=== PATIENT | female | born 1975 | race Caucasian/White ===

== ENCOUNTER 2017-07-18 13:42 | Inpatient (IN) | payer MEDICAID, OTHER ==
[~2017-07-18] VITALS: Ht 165.1 cm; Wt 65.5 kg
[~2017-07-18 13:42] MED LIST: ADVA250A INH; ADVAI250I PO; ALBU1AER INH; ALBU8I INH; ATOR20TA PO; ATOR40TA PO; BUSP10TA PO; CLOB-50 EX; CLOBETASOL; CLON.5 PO; FLON0.053; FOLI5CAP PO; GLUCTAB PO; IBUP800T23 PO; LACT10SO27; MEDR2.5T19 IM; METH2.5 PO; MORP1CAP80; MUSCLE RELAXER; NEUR300C PO; OMEP20TA39 PO; PREG75 PO; PROP20TA3 PO; SERO100T PO; SERO200T PO; SUCR1TAB PO; SYMB160A INH; TIZA4 PO; TRAZ100 PO; WAL-10TA2 PO
[2017-07-18 14:00] VITALS: BP 117/64; PULSE 92; RESP 20; TEMP 98.5; O2SAT 98
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
[2017-07-18 14:43] LABS: AUTOMATED NEUTROPHIL # 7.6 TH/MM3 (1.8-7.7); BASOPHIL # 0.1 TH/MM3 (0-0.2); BASOPHIL % 0.7 % (0.0-2.0); EOSINOPHIL # 0.2 TH/MM3 (0-0.4); EOSINOPHIL % 1.7 % (0.0-4.0); HEMATOCRIT 39.9 % (35.0-46.0); HEMOGLOBIN 13.6 GM/DL (11.6-15.3); LYMPH % 29.9 % (9.0-44.0); LYMPHOCYTE # 3.8 TH/MM3 (1.0-4.8); MEAN CELL VOLUME 98.9 FL (80.0-100.0); MEAN CORPUSCULAR HEMOGLOBIN 33.7 PG (27.0-34.0); MEAN PLATELET VOLUME 8.9 FL (7.0-11.0); MONO % 8.4 % (0.0-8.0); MONOCYTE # 1.1 TH/MM3 (0-0.9); NEUT % 59.3 % (16.0-70.0); PLATELET COUNT 213 TH/MM3 (150-450); RED BLOOD COUNT 4.04 MIL/MM3 (4.00-5.30); WHITE BLOOD COUNT 12.8 TH/MM3 (4.0-11.0)
[2017-07-18] MEDS ORDERED: ZIPRASIDONE HCL 20 MG CAP PO ONE (14:45)
[2017-07-18 14:49] LABS: BACTERIA, URINE OCC /hpf; BILIRUBIN, URINE NEG (NEG); BLOOD, URINE NEG (NEG); GLUCOSE,URINE NEG (NEG); KETONE, URINE NEG (NEG); NITRITE,URINE NEG (NEG); PH, URINE 7.5 (5.0-8.5); SQUAMOUS EPITHELIAL CELL URINE 21 /hpf (0-5); URINE COLOR YELLOW (YELLW/STRAW); URINE LEUKOCYTE ESTERASE NEG (NEG)
[2017-07-18 15:03] LABS: ALBUMIN 3.9 GM/DL (3.4-5.0); ALT (GPT) 21 U/L (10-53); AST (GOT) 12 U/L (15-37); BICARBONATE 24.9 MEQ/L (21.0-32.0); BLOOD UREA NITROGEN 10 MG/DL (7-18); CHLORIDE 109 MEQ/L (98-107); CREATININE 0.69 MG/DL (0.50-1.00); GLOMERULAR FILTRATION RATE 93 ML/MIN (>89); GLUCOSE,RANDOM 100 MG/DL (74-106); SODIUM (NA) 139 MEQ/L (136-145)
[2017-07-18 15:05] LABS: ALKALINE PHOSPHATASE 62 U/L (45-117); TOTAL BILIRUBIN ADULT 0.4 MG/DL (0.2-1.0); TOTAL PROTEIN 6.9 GM/DL (6.4-8.2)
[2017-07-18 15:08] VITALS: BP 124/84; PULSE 79; RESP 18; TEMP 98.7; O2SAT 96
[2017-07-18] MEDS ORDERED: diphenhydrAMINE HCL 50 MG/ML VIAL IM ONE (15:30)
[2017-07-18] MEDS ORDERED: HALOPERIDOL LACTATE 5 MG/ML AMP IM ONE (15:30)
[2017-07-18] MEDS ORDERED: LORazepam 2 MG/ML VIAL IM ONE (15:30)
[2017-07-18] MEDS ORDERED: HALOPERIDOL LACTATE 5 MG/ML AMP ONE (15:40)
[2017-07-18] MEDS ORDERED: LORazepam 2 MG/ML VIAL ONE (15:41)
[2017-07-18 18:38] VITALS: BP 122/86; PULSE 56; RESP 18; O2SAT 99
[2017-07-18 22:43] VITALS: BP 122/68; PULSE 73; RESP 17; TEMP 99.2; O2SAT 95
[2017-07-19 02:24] VITALS: BP 120/59; PULSE 80; RESP 16; TEMP 98.5; O2SAT 96
[2017-07-19 06:50] VITALS: BP 110/59; PULSE 75; RESP 16; TEMP 98.5; O2SAT 96
[2017-07-19] MEDS ORDERED: diphenhydrAMINE HCL 50 MG/ML VIAL IM PRN (10:45)
[2017-07-19] MEDS ORDERED: MAGNESIUM HYDROXIDE SUSP 30 ML CUP PO PRN (10:45)
[2017-07-19] MEDS ORDERED: traZODone HCL 50 MG TAB PO PRN (10:45)
[2017-07-19] MEDS ORDERED: ALUMINUM/MAGNESIUM/SIMETH 30 ML CUP PO PRN (10:45)
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
[2017-07-19 10:56] VITALS: BP 118/75; PULSE 84; RESP 20
[2017-07-19] MEDS: DIVALPROEX SODIUM E.R. 500 MG TAB PO SCH (11:28)
[2017-07-19] MEDS: clonazePAM 1 MG TAB PO SCH ×2 (11:29→20:52)
[2017-07-19 12:35] VITALS: BP 100/68; PULSE 71; RESP 18; TEMP 97.1; O2SAT 99
[2017-07-19] MEDS ORDERED: GLUCAGON 1 MG/ML VIAL OTHER PRN (13:45)
[2017-07-19] MEDS ORDERED: DEXTROSE 50% IN WATER 50 ML VIAL(D50) IV PUSH PRN (13:45)
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
[2017-07-19] MEDS: INSULIN ASPART SUPPLEMENTAL SCALE SQ SCH ×2 (16:36→20:52)
[2017-07-19] MEDS: FLUTICASONE PROPIONATE 50 MCG/ACT 16 GM NASAL SPRAY NASAL SCH (20:53)
[2017-07-20 06:13] VITALS: BP 106/55; PULSE 71; RESP 16; TEMP 98; O2SAT 99
[2017-07-20] MEDS: INSULIN ASPART SUPPLEMENTAL SCALE SQ SCH ×4 (07:34→21:00)
[2017-07-20] MEDS ORDERED: SERO25TA PO (08:07)
[2017-07-20] MEDS ORDERED: VIIB10TA PO (08:07)
[2017-07-20] MEDS ORDERED: FLUT1SPR5 EACH NARE (08:07)
[2017-07-20] MEDS ORDERED: TRAZ100T10 PO (08:07)
[2017-07-20] MEDS ORDERED: CLON1 PO (08:07)
[2017-07-20] MEDS ORDERED: XANA1TAB2 PO (08:07)
[2017-07-20] MEDS ORDERED: SERO300T PO (08:07)
[2017-07-20] MEDS: clonazePAM 1 MG TAB PO SCH (09:00)
[2017-07-20] MEDS: FLUTICASONE PROPIONATE 50 MCG/ACT 16 GM NASAL SPRAY NASAL SCH ×2 (09:00→20:53)
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
[2017-07-20] MEDS: DIVALPROEX SODIUM E.R. 500 MG TAB PO SCH (09:09)
[2017-07-20 10:08] LABS: AUTOMATED NEUTROPHIL # 8.5 TH/MM3 (1.8-7.7); BASOPHIL # 0.1 TH/MM3 (0-0.2); BASOPHIL % 0.7 % (0.0-2.0); EOSINOPHIL # 0.3 TH/MM3 (0-0.4); EOSINOPHIL % 2.2 % (0.0-4.0); HEMATOCRIT 44.3 % (35.0-46.0); HEMOGLOBIN 14.4 GM/DL (11.6-15.3); LYMPH % 26.1 % (9.0-44.0); LYMPHOCYTE # 3.4 TH/MM3 (1.0-4.8); MEAN CORPUSCULAR HEMOGLOBIN 32.5 PG (27.0-34.0); MEAN CORPUSCULAR HGB CONC 32.5 % (32.0-36.0); MEAN PLATELET VOLUME 8.7 FL (7.0-11.0); MONO % 6.1 % (0.0-8.0); MONOCYTE # 0.8 TH/MM3 (0-0.9); NEUT % 64.9 % (16.0-70.0); PLATELET COUNT 221 TH/MM3 (150-450); RED BLOOD COUNT 4.43 MIL/MM3 (4.00-5.30); RED CELL DISTRIBUTION WIDTH 13.8 % (11.6-17.2)
[2017-07-20 11:01] LABS: ALBUMIN 3.4 GM/DL (3.4-5.0); AST (GOT) 33 U/L (15-37); BICARBONATE 23.6 MEQ/L (21.0-32.0); BLOOD UREA NITROGEN 14 MG/DL (7-18); CALCIUM 8.9 MG/DL (8.5-10.1); CHLORIDE 105 MEQ/L (98-107); CHOLESTEROL 170 MG/DL (120-200); CREATININE 0.82 MG/DL (0.50-1.00); GLOMERULAR FILTRATION RATE 76 ML/MIN (>89); GLUCOSE,RANDOM 123 MG/DL (74-106); SODIUM (NA) 136 MEQ/L (136-145)
[2017-07-20] MEDS: hydrOXYzine HCL 50 MG TAB PO PRN ×2 (11:01→20:52)
[2017-07-20] MEDS: QUEtiapine FUMARATE 25 MG TAB PO SCH (11:02)
[2017-07-20 11:21] LABS: ALKALINE PHOSPHATASE 55 U/L (45-117); ALT (GPT) 20 U/L (10-53); CHOLESTEROL/ HDL RATIO 2.93 RATIO; LDL CHOLESTEROL 94 MG/DL (0-99); TOTAL BILIRUBIN ADULT 0.3 MG/DL (0.2-1.0); TOTAL PROTEIN 6.8 GM/DL (6.4-8.2); TRIGLYCERIDES 89 MG/DL (42-150)
[2017-07-20] MEDS: NICOTINE 21 MG/24 HR PATCH T-DERMAL SCH (14:15)
--- NOTE | 2017-07-20 14:54 | EKG ---
Date Performed: 07/20/2017 Time Performed: 09:50:13 PTAGE: 42 years EKG: Sinus rhythm WITH SINUS ARRHYTHMIA RIGHT ATRIAL ENLARGEMENT POSSIBLE LEFT ATRIAL ENLARGEMENT INDETERMINATE AXIS P OSSIBLE RIGHT VENTRICULAR CONDUCTION DELAY Since previous tracing, no significant change noted ABNORM AL ECG PREVIOUS TRACING : 08/05/2014 12.14 DOCTOR: Suhas Patel Interpretating Date/Time 07/20/2017 14:52:41
[2017-07-20 15:24] LABS: HEMOGLOBIN A1C 5.4 % (4.3-6.0)
--- NOTE | 2017-07-20 15:37 | PD.TTN ---
Patient Problems 1. Discharge planning 2. Medication compliance 3. Knowledge deficit 4. Lack of coping skills Progress Toward Goals Provider Present: Dr. Cher Benedict Provider Input: Pt is new to the unit and will be evaluated along with medication regiment. Nurse(s) Present: Keyla Kothari RN Nurse(s) Input: Pt is new to the unit and will continue to be monitored. Psychiatric Counselors Present: CARMENCITA Ordonez Psych Therapist Input: Pt will be assessed using biopsychosocial assessment as she is new today. Group Spec/RT/OT/LOVELL Present: NAS Valero Group Spec/RT/OT/LOVELL Input: Pt is new and will be evaluated as well as encouraged to attend group. Discharge Plan SMA Pt discharge plan will be evaluated as her care continues. She has a home at this time but is not wanting to return there and wishes to be placed at an [facility]. Documentation Scribe: CARMENCITA Ordonez Jonathan LMHC Jul 20, 2017 15:37
[2017-07-20 18:00] VITALS: BP 109/61; PULSE 87; RESP 18; TEMP 97.5; O2SAT 98
[2017-07-20] MEDS: QUEtiapine FUMARATE 300 MG TAB PO SCH (20:52)
[2017-07-20] MEDS: diphenhydrAMINE HCL 50 MG CAP PO PRN (20:52)
[2017-07-20] MEDS: traZODone HCL 100 MG TAB PO SCH (20:52)
[2017-07-20] MEDS: ALBUTEROL SULFATE 90 MCG/ACT HFA 8 GM INHALER INH PRN (20:53)
[2017-07-20] MEDS ORDERED: FLUTICASONE EACH NARE SCH (21:00)
[2017-07-21 05:37] VITALS: BP 108/72; PULSE 94; RESP 17; TEMP 97.8; O2SAT 99
[2017-07-21] MEDS: INSULIN ASPART SUPPLEMENTAL SCALE SQ SCH ×2 (08:00→11:08)
[2017-07-21] MEDS: NICOTINE 21 MG/24 HR PATCH T-DERMAL SCH (08:01)
[2017-07-21] MEDS: QUEtiapine FUMARATE 25 MG TAB PO SCH ×2 (08:01→11:11)
[2017-07-21] MEDS: REMOVE OLD PATCH T-DERMAL SCH (08:04)
[2017-07-21] MEDS ORDERED: VILAZODONE 10 MG PO SCH (09:00)
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
[2017-07-21] MEDS: ERGOCALCIFEROL (VIT D2) 50,000 UNIT CAP PO SCH (14:36)
[2017-07-21] MEDS: FLUTICASONE PROPIONATE 50 MCG/ACT 16 GM NASAL SPRAY NASAL SCH ×2 (14:36→22:45)
[2017-07-21] MEDS: ACETAMINOPHEN 325 MG TAB PO PRN ×2 (17:26→21:32)
[2017-07-21] MEDS: QUEtiapine FUMARATE 300 MG TAB PO SCH (21:31)
[2017-07-21] MEDS: hydrOXYzine HCL 50 MG TAB PO PRN (21:32)
[2017-07-21] MEDS: traZODone HCL 100 MG TAB PO SCH (21:32)
[2017-07-21] MEDS: diphenhydrAMINE HCL 50 MG CAP PO PRN (21:34)
[2017-07-21] MEDS: ALBUTEROL SULFATE 90 MCG/ACT HFA 8 GM INHALER INH PRN (22:45)
[2017-07-22 06:03] VITALS: BP 96/55; PULSE 79; RESP 16; TEMP 98.2; O2SAT 97
[2017-07-22] MEDS: ALBUTEROL SULFATE 90 MCG/ACT HFA 8 GM INHALER INH PRN ×2 (08:17→21:38)
[2017-07-22] MEDS: QUEtiapine FUMARATE 25 MG TAB PO SCH ×2 (08:19→11:38)
[2017-07-22] MEDS: NICOTINE 21 MG/24 HR PATCH T-DERMAL SCH (08:19)
[2017-07-22] MEDS: FLUTICASONE PROPIONATE 50 MCG/ACT 16 GM NASAL SPRAY NASAL SCH ×2 (08:22→21:00)
[2017-07-22] MEDS: REMOVE OLD PATCH T-DERMAL SCH (08:22)
--- NOTE | 2017-07-22 15:07 | HHI.PYPN ---
Subjective Chief Complaint: "I need to get my meds all right." Remarks Pt seen and discussed with staff. She continues to engage in splitting behaviors and making demands for various medications including pain medicines. No aggression or agitation. No depression or SI/HI. Mental Status Examination Appearance: Disheveled Consciousness: Alert Orientation: x4 Motor Activity: Normal gait, Other (no motor abnormalities noted. No signs of withdrawal noted.) Speech: Unremarkable Language: Adequate Fund of Knowledge: Adequate Attention and Concentration: Adequate Memory: Unremarkable (grossly intact on clinical exam) Mood: Anxious, Other (depressed) Affect: Blunt Thought Process & Associations: Intact, Linear Thought Content: Appropriate Hallucination Type: None Delusion Type: None Suicidal Ideation: No Suicidal Plan: No Suicidal Intention: No Homicidal Ideation: No Homicidal Plan: No Homicidal Intention: No Insight: Fair Judgment: Impulsive Results Labs Date/Time Source Procedure Growth Status 07/20/17 16:53 Urine Clean Catch Urine Culture - Final 10-50,000 CFU/ML MIXED MICHELLE... Complete Vitals/IOs Vital Signs Date Time Temp Pulse Resp B/P (MAP) Pulse Ox O2 Delivery O2 Flow Rate FiO2 07/22/17 06:03 98.2 79 16 96/55 (69) 97 07/19/17 10:56 Room Air Assessment & Plan Problem List: (1) Adjustment disorder with mixed disturbance of emotions and conduct ICD Codes: F43.25 - Adjustment disorder with mixed disturbance of emotions and conduct (2) Polysubstance dependence ICD Codes: F19.20 - Other psychoactive substance dependence, uncomplicated Assessment & Plan Continue current tx plan. Estimated LOS: days Justification for Cont. Inpt. risk of decompensation Vicky Barr MD Jul 22, 2017 15:07
[2017-07-22] MEDS: traZODone HCL 100 MG TAB PO SCH (21:00)
[2017-07-22] MEDS: QUEtiapine FUMARATE 300 MG TAB PO SCH (21:00)
[2017-07-22] MEDS: hydrOXYzine HCL 50 MG TAB PO PRN (21:38)
[2017-07-23 05:56] VITALS: BP 101/55; PULSE 72; RESP 17; TEMP 97.7; O2SAT 97
[2017-07-23] MEDS: REMOVE OLD PATCH T-DERMAL SCH (09:00)
[2017-07-23] MEDS: NICOTINE 21 MG/24 HR PATCH T-DERMAL SCH (09:26)
[2017-07-23] MEDS: QUEtiapine FUMARATE 25 MG TAB PO SCH (09:26)
[2017-07-23] MEDS: FLUTICASONE PROPIONATE 50 MCG/ACT 16 GM NASAL SPRAY NASAL SCH ×2 (09:27→21:00)
--- NOTE | 2017-07-23 12:12 | HHI.PYPN ---
Subjective Chief Complaint: mixed state Remarks Patient seen and examined with nurse. Chart reviewed. Case discussed with nursing staff. On my examination today, the patient presents with pressured speech. She is hyperkinetic. She is perseverative on her medications, and she reports that she is not on several medications she is supposed to be on. She has produced a list of these medications, and it appears to include some potentially appropriate medications (like oxybutynin), but the list derails into other items like "senior living" and "electric blanket." We do not yet have a medication list from patient's pharmacy, and I have instructed the heating unit mechanic to obtain one. Affect is somewhat dysphoric. Patient remains medication seeking for controlled substances. Remains somewhat entitled and demanding. Denies side effects from medications. No physical complaints. Review of Systems ROS Limitations: Poor Historian Except as stated in HPI: all other systems reviewed are Neg Mental Status Examination Appearance: Disheveled Consciousness: Alert Orientation: x4 Motor Activity: Normal gait, Other (no motoric abnormalities noted) Speech: Pressured Language: Adequate Fund of Knowledge: Adequate Attention and Concentration: Adequate Memory: Unremarkable (grossly intact on clinical exam) Mood: Anxious, Other (dysphoric) Affect: Labile Thought Process & Associations: Other (perseverative) Thought Content: Appropriate Hallucination Type: None Delusion Type: None Suicidal Ideation: No Suicidal Plan: No Suicidal Intention: No Homicidal Ideation: No Homicidal Plan: No Homicidal Intention: No Insight: Fair (at best) Judgment: Impulsive Mental Status Exam Remarks No signs of withdrawal noted. Results Labs Date/Time Source Procedure Growth Status 07/20/17 16:53 Urine Clean Catch Urine Culture - Final 10-50,000 CFU/ML MIXED MICHELLE... Complete Labs reviewed. Vitals/IOs Vital Signs Date Time Temp Pulse Resp B/P (MAP) Pulse Ox O2 Delivery O2 Flow Rate FiO2 07/23/17 05:56 97.7 72 17 101/55 (70) 97 07/19/17 10:56 Room Air Assessment & Plan Problem List: (1) Bipolar disorder, curr episode mixed, severe, w/o psychotic features ICD Codes: F31.63 - Bipolar disorder, current episode mixed, severe, without psychotic features (2) Polysubstance dependence ICD Codes: F19.20 - Other psychoactive substance dependence, uncomplicated Assessment & Plan I continue to suspect some degree of manipulation for nursing home and controlled substances. There is likely also an Amagon II component to patient's current presentation. However, underneath these other features, patient does appear to be in a mixed state. I will discontinue antidepressants, which may exacerbate this state, and titrate Seroquel to 100mg qAM and 400mg qHS for mood stabilization. Patient had previously reported that she was not on VPA and so this was discontinued, but to consider introducing such an agent for mood stabilization. I do note that the patient has some psoriatic lesions on her elbows and so I will order betamethasone ointment. Continue to monitor on the inpatient unit. Continue other medications and care as ordered. Justification for Cont. Inpt. Medication changes. High risk for decompensation in less restrictive environment. Discharge Planning Pending psychiatric stabilization. Melchor Benedict MD Jul 23, 2017 12:12
[2017-07-23] MEDS ORDERED: OLANZapine IM 10 MG VIAL IM STA (15:46)
[2017-07-23] MEDS: diphenhydrAMINE HCL 50 MG CAP PO PRN ×2 (16:45→20:36)
[2017-07-23] MEDS: hydrOXYzine HCL 50 MG TAB PO PRN (20:36)
[2017-07-23] MEDS: ACETAMINOPHEN 325 MG TAB PO PRN (20:36)
[2017-07-23] MEDS ORDERED: QUEtiapine FUMARATE 200 MG TAB PO SCH (21:00)
[2017-07-24] MEDS: ALBUTEROL SULFATE 90 MCG/ACT HFA 8 GM INHALER INH PRN ×2 (05:06→12:12)
[2017-07-24 05:45] VITALS: BP 102/55; PULSE 90; RESP 18; TEMP 97.5; O2SAT 98
[2017-07-24] MEDS: NICOTINE 21 MG/24 HR PATCH T-DERMAL SCH (08:50)
[2017-07-24] MEDS: FLUTICASONE PROPIONATE 50 MCG/ACT 16 GM NASAL SPRAY NASAL SCH ×2 (08:51→21:18)
[2017-07-24] MEDS: QUEtiapine FUMARATE 100 MG TAB PO SCH (08:51)
[2017-07-24] MEDS: BETAMETHASONE DIPROPIONATE 0.05% OINT 15 GM TUBE TOPICAL SCH (08:51)
[2017-07-24] MEDS: REMOVE OLD PATCH T-DERMAL SCH (08:54)
--- NOTE | 2017-07-24 11:54 | HHI.PYPN ---
Subjective Chief Complaint: mixed state Remarks Patient seen and examined with nurse. Chart reviewed. Case discussed with nurse who reports patient remains in a mixed-manic state and is quite attention seeking. Case discussed in treatment team. On my examination today, patient seems marginally calmer. She is still hyperverbal with rapid speech. She perseverates on much of the same material as in previous visits. She is quite medication seeking, especially for benzodiazepines but also for medications more generally. We have faxed a request for med list from pharmacy, but I see no response yet. She says that she is experiencing CAH to self injure but says "I don't want to ." The patient has generated a list of "mental health issues" that includes "major manic depression...suicidal thoughts, homicidal thoughts, severe anxiety, ADHD - racing thoughts, severe major mood swings, PTSD , Bipolar, severe stress, insomnia, hopelessness, motor mouth, co-dependencies, clepto (sic), paranoid delusions with explosives, bad decision-making skills, angry outbursts, hears voices, arguments". She has generated a similarly hypergraphic list of objectives for the day. She does not verbalize any SI or HI to me today. Denies side effects from medications. Complains of neuropathic pain in neck and back; has been on gabapentin in the past. Also complains of GERD and requests PPI. No other physical complaints. Review of Systems ROS Limitations: Poor Historian Except as stated in HPI: all other systems reviewed are Neg Mental Status Examination Appearance: Disheveled Consciousness: Alert Orientation: x4 Motor Activity: Normal gait, Other (mildly psychomotor agitated but no other motor abnormalities noted) Speech: Pressured Language: Adequate Fund of Knowledge: Adequate Attention and Concentration: Adequate Memory: Unremarkable (grossly intact on clinical exam) Mood: Anxious Affect: Labile, Anxious Thought Process & Associations: Other (perseverative) Thought Content: Appropriate Hallucination Type: Other (Reports CAH to self-injure but does not appear internally stimulated.) Delusion Type: None Suicidal Ideation: No Suicidal Plan: No Suicidal Intention: No Homicidal Ideation: No Homicidal Plan: No Homicidal Intention: No Insight: Fair (at best) Judgment: Impulsive Results Labs Date/Time Source Procedure Growth Status 07/20/17 16:53 Urine Clean Catch Urine Culture - Final 10-50,000 CFU/ML MIXED MICHELLE... Complete Labs reviewed. Vitals/IOs Vital Signs Date Time Temp Pulse Resp B/P (MAP) Pulse Ox O2 Delivery O2 Flow Rate FiO2 07/24/17 05:45 97.5 90 18 102/55 (71) 98 Assessment & Plan Problem List: (1) Bipolar disorder, curr episode mixed, severe, w/o psychotic features ICD Codes: F31.63 - Bipolar disorder, current episode mixed, severe, without psychotic features (2) Polysubstance dependence ICD Codes: F19.20 - Other psychoactive substance dependence, uncomplicated Assessment & Plan Patient remains severely decompensated with respect to affective illness. Titrate Seroquel to 100mg qAM and 500mg qHS and add lithium 300mg BID both for mood stabilization. Check lithium level and BMP Sunday morning. Add gabapentin 100mg TID for neuropathic pain. Add Protonix for complaints of GERD. Awaiting med list from pharmacy. R/B/A for all med changes discussed with patient. Continue to monitor on high acuity unit. Continue other medications and care as ordered. Justification for Cont. Inpt. Medication changes. High risk for decompensation in less restrictive setting. Discharge Planning Pending psychiatric stabilization Request HC Surrog/Guard Advoc?: No Melchor Benedict MD Jul 24, 2017 11:54
[2017-07-24] MEDS: PANTOPRAZOLE SOD 20 MG DELAYED RELEASE TAB PO SCH (14:38)
--- NOTE | 2017-07-24 15:09 | PD.TTN ---
Patient Problems 1. Discharge planning 2. Medication compliance 3. Knowledge deficit 4. Lack of coping skills Progress Toward Goals Provider Present: Dr. Cher Benedict Provider Input: Pt is new to the unit and will be evaluated along with medication regiment. 1/2- Pt appears medication seeking and has been mentioning suicidal ideation. Nurse(s) Present: Keyla Kothari, RN Nurse(s) Input: Pt is new to the unit and will continue to be monitored. 1/2- Jyoti Orantes Pt received an IM yesterday due to her behaviors on unit, is medication seeking, manic and medication compliant. Psychiatric Counselors Present: CARMENCITA Ordonez Psych Therapist Input: Pt will be assessed using biopsychosocial assessment as she is new today. 1/2- Pt appears manic, hyperverbal, demanding, cooperative and disruptive on unit. She is focused on her placement issues as well as her financial issues. Pt has poor insight into condition and need for care. Pt is struggling to use coping and emotional regulation skills at this time. She states she can return home if necessary but prefers placement elsewhere though she has no available funds at this time. Group Spec/RT/OT/LOVELL Present: [facility] Valero Group Spec/RT/OT/LOVELL Input: Pt is new and will be evaluated as well as encouraged to attend group. 07/24- Power Brice OT Pt has attended select group activities. She is social with peers. Discharge Plan SMA Pt discharge plan will be evaluated as her care continues. She has a home at this time but is not wanting to return there and wishes to be placed at an [facility]. Documentation Scribe: CARMENCITA Ordonez Jonathan LMHC Jul 24, 2017 15:09
[2017-07-24] MEDS: hydrOXYzine HCL 50 MG TAB PO PRN (15:47)
[2017-07-24 16:54] VITALS: BP 115/55; PULSE 85; RESP 18; TEMP 98.7; O2SAT 97
[2017-07-24] MEDS: GABAPENTIN 100 MG CAP PO SCH (17:22)
[2017-07-24] MEDS ORDERED: QUEtiapine FUMARATE 200 MG TAB PO SCH (21:00)
[2017-07-24] MEDS: diphenhydrAMINE HCL 50 MG CAP PO PRN (21:17)
[2017-07-24] MEDS: LITHIUM CARBONATE 300 MG CAP PO SCH (21:17)
[2017-07-24] MEDS: ERGOCALCIFEROL (VIT D2) 50,000 UNIT CAP PO SCH (21:21)
[2017-07-25 05:36] VITALS: BP 132/68; PULSE 80; RESP 18; TEMP 98
[2017-07-25] MEDS: FLUTICASONE PROPIONATE 50 MCG/ACT 16 GM NASAL SPRAY NASAL SCH ×2 (09:00→20:16)
[2017-07-25] MEDS: REMOVE OLD PATCH T-DERMAL SCH (09:00)
[2017-07-25] MEDS: BETAMETHASONE DIPROPIONATE 0.05% OINT 15 GM TUBE TOPICAL SCH (09:18)
[2017-07-25] MEDS: GABAPENTIN 100 MG CAP PO SCH ×3 (09:18→17:52)
[2017-07-25] MEDS: LITHIUM CARBONATE 300 MG CAP PO SCH ×2 (09:18→20:16)
[2017-07-25] MEDS: PANTOPRAZOLE SOD 20 MG DELAYED RELEASE TAB PO SCH (09:18)
[2017-07-25] MEDS: NICOTINE 21 MG/24 HR PATCH T-DERMAL SCH (09:19)
[2017-07-25] MEDS: QUEtiapine FUMARATE 100 MG TAB PO SCH (09:19)
[2017-07-25] MEDS: LORATADINE 10 MG TAB PO SCH (12:50)
[2017-07-25] MEDS ORDERED: PILL SPLITTER OTHER PRN (13:00)
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
[2017-07-25 17:22] VITALS: BP 122/59; PULSE 76; RESP 18; TEMP 98; O2SAT 98
[2017-07-25] MEDS: diphenhydrAMINE HCL 50 MG CAP PO PRN (20:16)
[2017-07-25] MEDS: hydrOXYzine HCL 50 MG TAB PO PRN (20:16)
[2017-07-25] MEDS: ALBUTEROL SULFATE 90 MCG/ACT HFA 8 GM INHALER INH PRN (20:19)
[2017-07-25] MEDS ORDERED: OLANZapine 10 MG TAB PO SCH (21:00)
[2017-07-25] MEDS: ACETAMINOPHEN 325 MG TAB PO PRN (23:57)
[2017-07-26 05:41] VITALS: BP 129/69; PULSE 91; RESP 18; TEMP 97.4; O2SAT 99
[2017-07-26] MEDS: LORATADINE 10 MG TAB PO SCH (07:52)
[2017-07-26] MEDS: PANTOPRAZOLE SOD 20 MG DELAYED RELEASE TAB PO SCH (07:52)
[2017-07-26] MEDS: FLUTICASONE PROPIONATE 50 MCG/ACT 16 GM NASAL SPRAY NASAL SCH (07:53)
[2017-07-26] MEDS: BETAMETHASONE DIPROPIONATE 0.05% OINT 15 GM TUBE TOPICAL SCH (07:53)
[2017-07-26] MEDS: NICOTINE 21 MG/24 HR PATCH T-DERMAL SCH (07:53)
[2017-07-26] MEDS: GABAPENTIN 100 MG CAP PO SCH (07:53)
[2017-07-26] MEDS: LITHIUM CARBONATE 300 MG CAP PO SCH (07:53)
[2017-07-26] MEDS: REMOVE OLD PATCH T-DERMAL SCH (09:57)
[2017-07-26] MEDS ORDERED: LITH300C2 PO (11:26)
[2017-07-26] MEDS ORDERED: OLAN10TA PO (11:26)
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
== END 2017-07-26 13:05 | disposition left against medical advice (07) | DRG 885 ==
LOC: NEPC 13:42 → NEDA 07-19 10:36 → H270 07-19 12:35 → H260 07-21 16:00 → H270 07-23 17:20
PROVIDERS: ADMIT Psychiatry & Neurology Psychiatry; ATTEND Psychiatry & Neurology Psychiatry
DX: F31.63 Bipolar disorder, current episode mixed, severe, without psychotic features (principal); R45.851 Suicidal ideations; G62.9 Polyneuropathy, unspecified; F19.20 Other psychoactive substance dependence, uncomplicated; Z78.1 Physical restraint status; F60.89 Other specific personality disorders; F17.210 Nicotine dependence, cigarettes, uncomplicated; E11.9 Type 2 diabetes mellitus without complications; G89.29 Other chronic pain; M54.2 Cervicalgia; M54.9 Dorsalgia, unspecified; J44.9 Chronic obstructive pulmonary disease, unspecified; E78.5 Hyperlipidemia, unspecified; L40.9 Psoriasis, unspecified; Z91.19 Patient's noncompliance with other medical treatment and regimen; Z76.5 Malingerer [conscious simulation]; Z91.410 Personal history of adult physical and sexual abuse
CPT/HCPCS: 80053; 80061; 80307; 81001; 82306; 82607; 82948; 83036; 84443; 84703; 85025; 87086; 93005; 96372; J1200; J1630; J1815; J2060; Q0163

== ENCOUNTER 2017-07-27 11:11 | Emergency (ER) | payer MEDICAID, OTHER ==
[~2017-07-27] VITALS: Ht 165.1 cm; Wt 66.0 kg
[~2017-07-27 11:11] MED LIST changes: -ADVA250A INH; -ADVAI250I PO; -ALBU1AER INH; -ALBU8I INH; -ATOR20TA PO; -ATOR40TA PO; -BUSP10TA PO; -CLOB-50 EX; -CLOBETASOL; -CLON.5 PO; -FLON0.053; +FLUT1SPR5 EACH NARE; -FOLI5CAP PO; -GLUCTAB PO; -IBUP800T23 PO; -LACT10SO27; +LITH300C2 PO; -MEDR2.5T19 IM; -METH2.5 PO; -MORP1CAP80; -MUSCLE RELAXER; -NEUR300C PO; +OLAN10TA PO; -OMEP20TA39 PO; -PREG75 PO; -PROP20TA3 PO; -SERO100T PO; -SERO200T PO; -SUCR1TAB PO; -SYMB160A INH; -TIZA4 PO; -TRAZ100 PO; -WAL-10TA2 PO
[2017-07-27 11:28] VITALS: BP 117/89; PULSE 87; RESP 18; TEMP 98.6; O2SAT 96
[2017-07-27] MEDS ORDERED: KETOROLAC TROMETHAMINE 60 MG/2 ML (IM) VIAL IM ONE (11:45)
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
== END 2017-07-27 13:39 | disposition home or self-care (01) ==
LOC: NEPD 11:11 → NEPJ 13:39
DX: F60.89 Other specific personality disorders (principal); F17.200 Nicotine dependence, unspecified, uncomplicated; F12.90 Cannabis use, unspecified, uncomplicated; F14.90 Cocaine use, unspecified, uncomplicated; F15.90 Other stimulant use, unspecified, uncomplicated; G89.29 Other chronic pain; Z76.5 Malingerer [conscious simulation]
CPT/HCPCS: 96372; 99284; J1885

== ENCOUNTER 2018-04-25 09:01 | Inpatient (IN) ==
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
[2018-04-25 10:11] LABS: Baso # (Auto) 0.1 th/mm3 (0.0-0.2); Baso % (Auto) 0.8 % (0.0-2.0); Eos # (Auto) 0.3 th/mm3 (0.0-0.4); Eos % (Auto) 2.3 % (0.0-4.0); Hematocrit 41.8 % (35.0-46.0); Lymph # (Auto) 3.1 th/mm3 (1.0-4.8); Lymph % (Auto) 27.2 % (9.0-44.0); Mean Corpuscular HGB Conc 33.4 % (32.0-36.0); Mean Corpuscular Hemoglobin 32.7 pg (27.0-34.0); Mono % (Auto) 8.4 % (0.0-8.0); Neut % (Auto) 61.3 % (16.0-70.0); Platelet Count 221 th/mm3 (150-450); Red Blood Count 4.27 mil/mm3 (4.00-5.30); White Blood Count 11.5 th/mm3 (4.0-11.0)
[2018-04-25 10:31] LABS: Albumin 3.6 g/dL (3.4-5.0); Anion Gap 9 meq/L (5-15); Aspartate Aminotransferase 15 U/L (15-37); Blood Urea Nitrogen 11 mg/dL (7-18); Calcium 8.5 mg/dL (8.5-10.1); Carbon Dioxide 19.5 meq/L (21.0-32.0); Chloride 111 meq/L (98-107); Glomerular Filtration Rate 69 mL/min (>89); Glucose,Random 98 mg/dL (74-106); Potassium 4.2 meq/L (3.5-5.1); Sodium 139 meq/L (136-145)
[2018-04-25 10:32] LABS: Alanine Aminotransferase 37 U/L (10-53)
[2018-04-25 10:43] LABS: Alkaline Phosphatase 61 U/L (45-117); Total Protein 7.3 g/dL (6.4-8.2)
[2018-04-25] MEDS ORDERED: Aluminum/Magnesium/Simethacone Susp 30 ML UDC PO PRN (16:42)
[2018-04-25] MEDS ORDERED: Bisacodyl 10 MG Supp RECTAL PRN (16:42)
[2018-04-25] MEDS ORDERED: [UNRECOGNIZED DRUG - OTHER] PO SCH (16:45)
[2018-04-25] MEDS: Propranolol 40 MG Tablet PO SCH (18:00)
[2018-04-25] MEDS: Loratadine 10 MG Tablet PO SCH (18:00)
[2018-04-25] MEDS: QUEtiapine 25 MG Tablet PO SCH (18:02)
[2018-04-25] MEDS: Melatonin 5 MG Tablet PO PRN (21:37)
[2018-04-25] MEDS: traZODone 100 MG Tablet PO SCH (21:37)
[2018-04-25] MEDS: Senna/Docusate Sodium 8.6/50 MG Tablet PO SCH (21:37)
[2018-04-26] MEDS: Loratadine 10 MG Tablet PO SCH (09:31)
[2018-04-26] MEDS: Propranolol 40 MG Tablet PO SCH (09:31)
[2018-04-26] MEDS: traZODone 100 MG Tablet PO SCH (09:33)
[2018-04-26] MEDS: Senna/Docusate Sodium 8.6/50 MG Tablet PO SCH (09:33)
[2018-04-26] MEDS: QUEtiapine 25 MG Tablet PO SCH (09:34)
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
--- NOTE | 2018-04-26 12:02 | P.TTN ---
- Patient Problems Problems: 1. Discharge planning 2. Medication compliance 3. Knowledge deficit 4. Lack of coping skills - Progress Toward Goals Provider Present: Dr. Cher Benedict Provider Input: 04/26: Will observe pt through the weekend, possible DC to [facility], pt is not compliant with diabetes medication Nurse(s) Present: Daya Nurse Input: 04/26: Pt is "vance" Psychiatric Counselors Present: Jean Claude Galeana Jr., [facility] Psychiatric Therapist Input: 04/26: Suspected malingering, provided pt with resources for housing and she has not made an attempt to call or follow up Group Spec/RT/OT/LOVELL Present: NAS Valero, Power Brice, OT Group Spec/RT/OT/LOVELL Input: 04/26: Pt attends select groups minimally, unable to tolerate entire length of group, seclusive - Discharge Plan Homeless plan 04/26: Possible DC to [facility] - Documentation Teaching Recipient: Patient
[2018-04-26] MEDS ORDERED: Acetaminophen 325 MG Tablet PO PRN (12:32)
[2018-04-26] MEDS: Gabapentin 300 MG Capsule PO SCH ×2 (13:47→18:00)
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
[2018-04-26] MEDS: QUEtiapine 100 MG Tablet PO SCH (21:22)
[2018-04-27] MEDS: Sucralfate 1 GM Tablet PO SCH ×3 (03:28→21:11)
[2018-04-27] MEDS: Loratadine 10 MG Tablet PO SCH (08:45)
[2018-04-27] MEDS: Gabapentin 300 MG Capsule PO SCH ×3 (08:45→17:44)
[2018-04-27] MEDS: Propranolol 40 MG Tablet PO SCH (08:46)
[2018-04-27] MEDS: QUEtiapine 25 MG Tablet PO SCH (08:46)
[2018-04-27 09:22] LABS: Baso # (Auto) 0.1 th/mm3 (0.0-0.2); Eos # (Auto) 0.3 th/mm3 (0.0-0.4); Eos % (Auto) 3.3 % (0.0-4.0); Hemoglobin 13.9 gm/dL (11.6-15.3); Lymph # (Auto) 2.3 th/mm3 (1.0-4.8); Lymph % (Auto) 27.5 % (9.0-44.0); Mean Corpuscular HGB Conc 33.9 % (32.0-36.0); Mean Corpuscular Hemoglobin 33.4 pg (27.0-34.0); Mean Corpuscular Volume 98.7 fL (80.0-100.0); Mono # (Auto) 0.6 th/mm3 (0.0-0.9); Mono % (Auto) 6.9 % (0.0-8.0); Neut # (Auto) 5.1 th/mm3 (1.8-7.7); Neut % (Auto) 61.3 % (16.0-70.0); Platelet Count 196 th/mm3 (150-450); Red Blood Count 4.16 mil/mm3 (4.00-5.30); Red Cell Distribution Width 13.4 % (11.6-17.2); White Blood Count 8.3 th/mm3 (4.0-11.0)
[2018-04-27 09:48] LABS: Calcium 8.6 mg/dL (8.5-10.1); Carbon Dioxide 23.7 meq/L (21.0-32.0)
--- NOTE | 2018-04-27 13:21 | ECG ---
Date Performed: 04/26/2018 Time Performed: 14:17:20 PTAGE: 42 years EKG: SINUS BRADYCARDIA WITH SINUS ARRHYTHMIA POSSIBLE RIGHT VENTRICULAR CONDUCTION DELAY BORDERL INE ECG PREVIOUS TRACING : 07/20/2017 09.50 DOCTOR: Angel Peguero Interpretating Date/Time 04/27/2018 13:14:37
--- NOTE | 2018-04-27 18:33 | P.PNPSY ---
Subjective Chief Complaint: "I want to get right on my meds." Remarks: Reviewed electronic medical records and discussed case with staff. Follow-up was conducted in the day room with JEANETTE Gutierrez present. Staff reports the patient has had no behaviors since being here. Patient states that she "needs a new psychological evaluation because there are conditions I have that I am not being treated for". She presents as manic and perseverates on wanting different medications. Mental Status Examination Appearance: Disheveled Consciousness: Alert, Vigilant Orientation: Person, Place (At least) Motor Activity: Other (No motor abnormalities noted) Speech: Rapid Language: Other (Rambling) Fund of Knowledge: Inadequate Attention and Concentration: Easily distracted Memory: Impaired (Psychosis likely interferes) Mood: Irritable Affect: Irritable, Labile Thought Process & Associations: Loose associations, Disorganized, Tangential Thought Content: Hallucinations, Delusional Hallucination Type: Auditory, Visual Delusion Type: Paranoid Suicidal Ideation: Yes Suicidal Plan: No Suicidal Intention: No (No reported urge to hurt self on inpatient unit) Homicidal Ideation: Yes Homicidal Plan: No Homicidal Intention: No Insight: Poor Judgment: Poor Assessment and Plan - Assessment (1) Bipolar disorder, curr episode mixed, severe, with psychotic features Code(s): F31.64 - Bipolar disorder, current episode mixed, severe, with psychotic features Status: Acute - Plan Plan: Patient will be reevaluated Sunday by the attending psychiatrist. Continue with current treatment plan. Justification for Continued Inpatient Stay: Moving this patient to a less restrictive environment would likely result in decompensation. Request Healthcare Surrogate/Guardian Advocate?: No
[2018-04-27] MEDS: QUEtiapine 100 MG Tablet PO SCH (21:11)
[2018-04-28] MEDS: QUEtiapine 25 MG Tablet PO SCH (09:10)
[2018-04-28] MEDS: Gabapentin 300 MG Capsule PO SCH ×3 (09:10→17:32)
[2018-04-28] MEDS: Propranolol 40 MG Tablet PO SCH (09:10)
[2018-04-28] MEDS: Loratadine 10 MG Tablet PO SCH (09:11)
[2018-04-28] MEDS: Sucralfate 1 GM Tablet PO SCH ×2 (09:11→20:40)
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
[2018-04-28] MEDS: QUEtiapine 100 MG Tablet PO SCH (20:40)
[2018-04-29] MEDS: Melatonin 5 MG Tablet PO PRN (02:25)
[2018-04-29] MEDS: QUEtiapine 25 MG Tablet PO SCH (09:05)
[2018-04-29] MEDS: Propranolol 40 MG Tablet PO SCH (09:05)
[2018-04-29] MEDS: Gabapentin 300 MG Capsule PO SCH ×3 (09:05→18:10)
[2018-04-29] MEDS: Loratadine 10 MG Tablet PO SCH (09:05)
[2018-04-29] MEDS: Sucralfate 1 GM Tablet PO SCH ×2 (09:10→20:19)
--- NOTE | 2018-04-29 13:00 | P.PNPSY ---
Subjective Chief Complaint: "I want to get right on my meds." Remarks: Patient seen and examined with nurse. Chart reviewed. Case discussed with nursing staff. Nursing reports that the patient is less irritable today but remains quite scattered. She apparently has been seeing commercials for various medications on TV and believes that she needs to be on each and every 1 of these. Case discussed with counselor who will try to obtain collateral information. On my examination today, the patient is somewhat irritable with pressured speech. She says that she wants to be on Invega (even though Risperdal caused galactorrhea), Strattera, Vraylar and Xanax. She insists that she slept well, that her mood is good, and that she is experiencing no hallucinations. She is focused on discharge. Following my departure from the unit however, I was called by the nurse who reported that patient admitted minimizing psychiatric symptoms to try to obtain discharge. No side effects from medications. No physical complaints. Vital Signs Temp Pulse Resp BP Pulse Ox 04/29/18 15:42 98.6 F 118 H 18 122/80 99 04/28/18 18:25 98.5 F 79 17 113/74 98 Laboratory Results - last 72 hr 04/27/18 04/27/18 08:48 08:48 WBC 8.3 RBC 4.16 Hgb 13.9 Hct 41.0 MCV 98.7 MCH 33.4 MCHC 33.9 RDW 13.4 Plt Count 196 MPV 8.0 Neut % (Auto) 61.3 Lymph % (Auto) 27.5 [place] % (Auto) 6.9 Eos % (Auto) 3.3 Baso % (Auto) 1.0 Neut # (Auto) 5.1 Lymph # (Auto) 2.3 [place] # (Auto) 0.6 Eos # (Auto) 0.3 Baso # (Auto) 0.1 WBC Differential . Differential Comment Auto diff final Sodium 141 Potassium 4.0 Chloride 108 H Carbon Dioxide 23.7 Anion Gap 9 BUN 13 Creatinine 0.95 Estimated GFR 65 L Random Glucose 175 H Calcium 8.6 Labs reviewed. Leukocytosis normalized. GFR stable. Review of Systems All other systems reviewed negative except as stated in HPI Mental Status Examination Appearance: Appropriate Consciousness: Alert Orientation: Person, Place (At least) Motor Activity: Other (No abnormal motor movements noted) Speech: Pressured Language: Other (Rambling) Fund of Knowledge: Inadequate Attention and Concentration: Easily distracted Memory: Impaired (Psychosis likely interferes) Mood: Irritable Affect: Irritable, Labile Thought Process & Associations: Loose associations (Mild) Thought Content: Appropriate Hallucination Type: None Delusion Type: None Suicidal Ideation: No Suicidal Plan: No Suicidal Intention: No Homicidal Ideation: No Homicidal Plan: No Homicidal Intention: No Insight: Poor Judgment: Poor Assessment and Plan - Assessment (1) Bipolar disorder, curr episode mixed, severe, with psychotic features Code(s): F31.64 - Bipolar disorder, current episode mixed, severe, with psychotic features Status: Acute (2) Cannabis abuse Code(s): F12.10 - Cannabis abuse, uncomplicated Status: Acute - Plan Plan: Titrate Seroquel to 75 mg in the morning and 150 mg at bedtime to target ongoing psychiatric symptoms. Plan for ongoing titration to effect and as tolerated. Continue to monitor on the inpatient unit. Continue other medications and care as ordered. Justification for Continued Inpatient Stay: Medication changes. High risk for decompensation in less restrictive environment. Discharge Planning: Pending psychiatric stabilization. Request Healthcare Surrogate/Guardian Advocate?: No
[2018-04-29] MEDS: QUEtiapine 100 MG Tablet PO SCH (20:18)
[2018-04-30] MEDS: Melatonin 5 MG Tablet PO PRN (01:08)
[2018-04-30] MEDS ORDERED: Haloperidol Inj 5 MG/ML Ampul ONE (08:34)
[2018-04-30] MEDS: Sucralfate 1 GM Tablet PO SCH ×2 (09:46→20:18)
[2018-04-30] MEDS: Loratadine 10 MG Tablet PO SCH (09:46)
[2018-04-30] MEDS: Propranolol 40 MG Tablet PO SCH (09:47)
[2018-04-30] MEDS: Gabapentin 300 MG Capsule PO SCH ×3 (09:47→18:15)
[2018-04-30] MEDS: QUEtiapine 25 MG Tablet PO SCH (09:48)
--- NOTE | 2018-04-30 15:58 | P.PNPSY ---
Subjective Chief Complaint: "I want to get right on my meds." Remarks: Reviewed electronic medical records and discussed case with staff. Follow-up was conducted in her room with lindsey Rankin present. Patient required an ETO this morning. She is found lying in her bed awake to verbal stimuli and states that she "could be better" states it was a rough past 8 months. She claims that her medicine is making her hallucinate and reports having a "emergency appointment tomorrow with Dr. Ribeiro at [facility]". Staff reports that [facility] many [facility] that they called to request they keep her from using the phone. She remains quite manic. She is requesting discharge so I advised the nursing staff to have her fill out a request of release for tomorrow which then can be evaluated if she needs to be converted to an involuntary. Mental Status Examination Appearance: Appropriate Consciousness: Alert Orientation: Person, Place (At least) Motor Activity: Other (No abnormal motor movements noted) Speech: Pressured Language: Other (Rambling) Fund of Knowledge: Inadequate Attention and Concentration: Easily distracted Memory: Impaired (Psychosis likely interferes) Mood: Irritable Affect: Irritable, Labile Thought Process & Associations: Loose associations (Mild) Thought Content: Appropriate Hallucination Type: None Delusion Type: None Suicidal Ideation: No Suicidal Plan: No Suicidal Intention: No Homicidal Ideation: No Homicidal Plan: No Homicidal Intention: No Insight: Poor Judgment: Poor Assessment and Plan - Assessment (1) Bipolar disorder, curr episode mixed, severe, with psychotic features Code(s): F31.64 - Bipolar disorder, current episode mixed, severe, with psychotic features Status: Acute - Plan Plan: Patient will be reevaluated by the attending psychiatrist. Continue with current treatment plan. Justification for Continued Inpatient Stay: Moving this patient to a less restrictive environment would likely result in decompensation. Request Healthcare Surrogate/Guardian Advocate?: No
[2018-04-30] MEDS: QUEtiapine 100 MG Tablet PO SCH (20:18)
[2018-05-01] MEDS: Sucralfate 1 GM Tablet PO SCH ×2 (08:22→21:10)
[2018-05-01] MEDS: Propranolol 40 MG Tablet PO SCH (08:23)
[2018-05-01] MEDS: QUEtiapine 25 MG Tablet PO SCH (08:23)
[2018-05-01] MEDS: Gabapentin 300 MG Capsule PO SCH ×2 (08:23→16:02)
[2018-05-01] MEDS: Loratadine 10 MG Tablet PO SCH (08:23)
--- NOTE | 2018-05-01 20:39 | P.PNPSY ---
Subjective Chief Complaint: "I want to get right on my meds." Remarks: Patient seen for follow-up, chart reviewed. Discussion with nursing staff reported that patient had receive ETO yesterday but since has been calm and quiet, slept overnight with no behavioral disturbance thereafter. Patient was found in blade on unit noted B, cooperative. Patient states that she feels that the Seroquel is helping and states that Haldol when she took it made her feel high. Patient recalls having receive ETO yesterday after an argument with another patient and felt that the treatment had helped. Patient mentioning being interested in long-acting injectables. Patient will present to mental health court tomorrow. Review of Systems All other systems reviewed negative except as stated in HPI Mental Status Examination Appearance: Appropriate Consciousness: Alert Orientation: Person, Place (At least) Motor Activity: Other (No abnormal motor movements noted) Speech: Pressured (Lessening) Language: Other (Rambling) Fund of Knowledge: Inadequate Attention and Concentration: Easily distracted Memory: Impaired (Psychosis likely interferes) Mood: Appropriate Affect: Other (Notable elevated mood) Thought Process & Associations: Loose associations (Mild) Thought Content: Appropriate Hallucination Type: None Delusion Type: None Suicidal Ideation: No Suicidal Plan: No Suicidal Intention: No Homicidal Ideation: No Homicidal Plan: No Homicidal Intention: No Insight: Poor Judgment: Poor Assessment and Plan - Assessment (1) Bipolar disorder, curr episode mixed, severe, with psychotic features Code(s): F31.64 - Bipolar disorder, current episode mixed, severe, with psychotic features Status: Acute (2) Cannabis abuse Code(s): F12.10 - Cannabis abuse, uncomplicated Status: Acute - Plan Plan: Patient continues to be noted with some elevated mood, expansive but noted with less pressured speech and less disorganization. Patient receive ETO yesterday but has been a good behavioral control today. We will continue current treatment. We will continue to monitor mood and behavior. Patient will present to mental health court tomorrow. Discharge planning in progress. Justification for Continued Inpatient Stay: At risk of further decompensation at lower level care. Request Healthcare Surrogate/Guardian Advocate?: No
[2018-05-01] MEDS: Melatonin 5 MG Tablet PO PRN (21:10)
[2018-05-01] MEDS: QUEtiapine 100 MG Tablet PO SCH (21:11)
[2018-05-02 06:08] VITALS: BP 113/79; PULSE 81; RESP 16; TEMP 97.2; O2SAT 98
[2018-05-02] MEDS: Sucralfate 1 GM Tablet PO SCH (08:24)
[2018-05-02] MEDS: Propranolol 40 MG Tablet PO SCH (08:24)
[2018-05-02] MEDS: Gabapentin 300 MG Capsule PO SCH (08:24)
[2018-05-02] MEDS: QUEtiapine 25 MG Tablet PO SCH (08:25)
[2018-05-02] MEDS: Loratadine 10 MG Tablet PO SCH (08:25)
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
== END 2018-05-02 15:05 | disposition left against medical advice (07) ==
LOC: NEPJ 09:01 → H260 17:36 → H270 04-26 17:52
PROVIDERS: ADMIT Psychiatry & Neurology Psychiatry; ATTEND Psychiatry & Neurology Psychiatry